=== PATIENT | male | born 1990 | race Two or more races ===

== ENCOUNTER 2018-09-22 17:10 | Emergency (ER) | payer OTHER ==
[~2018-09-22] VITALS: Ht 182.9 cm; Wt 70.0 kg
[2018-09-23] MEDS ORDERED: METHYLPREDNISOLONE SOD SUCC 500 MG in DEXT 5% WATER 100 ML IV ONE (00:15)
[2018-09-23 00:46] LABS: HEMATOCRIT. 42.1 % (42.0-52.0); HEMOGLOBIN. 13.9 g/dL (14.0-18.0); MEAN CORPUSCULAR HEMOGLOBIN 27.3 pg (28.0-32.0); MEAN CORPUSCULAR VOLUME 82.9 fL (80.0-94.0); MEAN PLATELET VOLUME 7.2 fl (7.4-10.4); PLATELET 191 x1000/uL (130-400); RED BLOOD CELL COUNT 5.08 mill/uL (4.7-6.1); RED CELL DISTRIBUTION WIDTH 13.5 % (11.6-14.6)
[2018-09-23 00:51] LABS: CHLORIDE 105 mEq/L (98-107)
[2018-09-23] MEDS ORDERED: METHYLPREDNISOLONE SOD SUCC 500 MG in DEXT 5% WATER 100 ML IV SCH (01:00)
[2018-09-23 01:08] LABS: PLATELET ESTIMATE NORMAL
[2018-09-23 03:54] VITALS: BP 107/61
== END 2018-09-23 03:55 | disposition home or self-care (01) ==
LOC: ER 17:10 → CANBEDREQ 09-23 05:11
DX: G35 Multiple sclerosis (principal)
CPT/HCPCS: 36415; 80053; 85025; 96365; 96366; 99283; J2930; J7060